=== PATIENT | male | born 1950 | race Caucasian/White ===

== ENCOUNTER 2017-02-11 00:43 | Inpatient (IN) ==
[2017-02-11] MEDS ORDERED: ONDANSETRON 4 MG/2 ML INJECTION IVP ONE (00:51)
[2017-02-11] MEDS ORDERED: HYDROMORPHONE 2 MG/ML INJECTION IVP ONE (00:51)
[2017-02-11] MEDS ORDERED: ONDANSETRON 4 MG/2 ML INJECTION IVP PRN (00:51)
[2017-02-11] MEDS ORDERED: ERTAPENEM 1 G in NS 100 ML IV ONE (00:51)
--- NOTE | 2017-02-11 01:00 | Emergency Department Report ---
Abdominal Pain HPI - General Stated Complaint: Appendicitis Time Seen by Provider: 02/11/17 00:45 Source: patient, EMS Limitations: no limitations - History of Present Illness HPI narrative: Patient began having abdominal pain yesterday morning, this extended into the right lower quadrant and became worse throughout the day. Patient finally presented to [facility] in [facility] where he was found to have what appeared to be acute terminal appendicitis. Patient is transferred to this ER for further stabilization, and for admission to Dr. Iain Hadley. Patient was found to have an elevated white blood cell count of 21,000, with no significant left shift positive H pylori rapid antigen but a normal UA. Patient also had a normal amylase and lipase, and [place] a metabolic panel was likewise normal. CT shows a 0.7 cm calcification in the mid appendix compatible with appendicolith, moderate fluid dilation of the distal appendix measuring 1.6 cm with mild to moderate adjacent fat stranding surrounding the appendix. Patient did not receive any IV fluids, and was only given Toradol for pain at the outlying facility. Patient initially stated that he would wait until he had surgery for his pain medication, but when the patient heard that he would be admitted overnight and have surgery in the morning, he readily accepted IV pain medication. Review of Systems All systems: reviewed and negative except as stated PFSH Hypertension, gallstones Surgical History: Cholecystectomy. Knee surgery 2 Physical Exam - Limitations Limitations: no limitations - General General appearance: alert - Normal Exams: Head:: Normocephalic without trauma Eyes:: Pupils are PERRLA w/ EOMI, No scleral icterus, irritation, or foreign bodies noted ENMT:: No facial trauma, nasal exudates, pharyngeal erythema, or exudates are noted Neck:: Full range of motion, without adenopathy, JVD, bruits or thyromegaly Chest/Respirations:: Clear all daugherty, with good airflow, and symmetry bilaterally Cardiovascular:: Regular rate and rhythm, without murmur or gallop, Pulses 2+ all extremities, capillary refill, <2 seconds all extremities Lymphatic:: No lymphadenopathy, or lymphedema noted Musculoskeletal:: No tenderness, or deformity noted, good range of motion, all extremities Integumentary:: No rashes, hives, or bruising noted, hair and nails, without abnormality Neurological:: Patient is alert, and oriented, cranial nerves, motor/sensory/ cerebellar, exams w/o gross deficits, to observation Psychiatric:: Patient exhibits, appropriate attention, emotion and affect - Abdominal Exam Abdominal exam: Present: soft, tenderness (moderate right lower quadrant tenderness), rebound, tenderness at McBurney's Point. Absent: distention, guarding, trauma, incision, psoas sign, obturator sign, Bautista's sign, Rovsing' s sign, mass, bruit, pulsatile mass, hernia Abdominal Pain - [place] Narrative Medical decision making narrative: Patient appears to have acute appendicitis, but is stable. He is given Dilaudid 0.5 mg, Zofran 4 mg, and Invanz started in the ER. Dr. Hadley was notified, and patient will be kept nothing by mouth for probable appendicitis first thing in the morning Disposition Clinical Impression: Acute appendicitis Qualifiers: Acute appendicitis type: with localized peritonitis Qualified Code(s): K35.3 - Acute appendicitis with localized peritonitis Disposition: 02 To [facility] Condition: Improved - Seen By: physician
[2017-02-11] MEDS: NS 1,000 ML IV SCH ×3 (01:04→21:40)
[2017-02-11] MEDS ORDERED: SALINE FLUSH 10ml SYRINGE IVF PRN (01:52)
[2017-02-11 02:20] VITALS: BMI 38.8
[2017-02-11] MEDS: HYDROMORPHONE 2 MG/ML INJECTION IVP PRN ×2 (04:57→08:24)
--- NOTE | 2017-02-11 07:57 | General Surg History&Physical ---
- History of Present Illness Chief complaint: RLQ abd pain HPI: Per Dr. Hadley [facility] Patient Stated Medical History Hypertension Yes Obesity Surgical History: Cholecystectomy. Knee surgery 2 Family History: father age 66 of [place] mother age 77 of pneumonia - Social History Smoking status: Former smoker (quit in 1982, prior a pack a day) Alcohol intake frequency: former alcohol drinker Medications Home Medications Medication Instructions Recorded Confirmed Type Atenolol [Tenormin] 1 tab PO DAILY 02/11/17 02/11/17 History Allergies Allergy/AdvReac Type Severity Reaction Status Date / Time hydrocodone Allergy Unknown Verified 02/11/17 01:35 Review of Systems 10-point ROS: negative except for HPI and the following: - Musculoskeletal Musculoskeletal: Present: joint pain - Vital Signs Last Vital Signs Temp 99.1 F 02/11/17 02:09 Pulse 71 02/11/17 02:09 Resp 20 02/11/17 02:09 BP 128/82 02/11/17 02:09 Pulse Ox 99 02/11/17 02:09 Sepsis Assessment - Evaluation Sepsis screening result: No Definite Risk Hospital Course Summary Disclaimer: The visit summary below is not to be considered part of the above Progress Note.
[2017-02-11] MEDS ORDERED: BUPIVACAINE 0.25%/EPI 1:200,000 30ml SDV ONE (08:25)
[2017-02-11] MEDS ORDERED: MIDAZOLAM 2mg/2ml INJECTION IVP ONE (08:42)
[2017-02-11] MEDS ORDERED: Levalbuterol 0.63mg/3ml NEB AEROSOL STA (08:43)
[2017-02-11] MEDS ORDERED: LR 1,000 ML IV SCH (08:45)
--- NOTE | 2017-02-11 08:48 | Anesthesia Preoperative Report ---
Anesthesia Preoperative Record - Date and Time Date: 02/11/17 Preoperative Diagnosis: Acute Appendicitis Proposed Procedure: Lap Appy NPO Since Date: 02/11/17 NPO Since Time: 00:00 Allergies/Adverse Reactions: Allergies Allergy/AdvReac Type Severity Reaction Status Date / Time hydrocodone Allergy Unknown Verified 02/11/17 01:35 - Vital Signs Vital Signs: Temperature 101.1 F H 02/11/17 08:36 Pulse Rate 104 H 02/11/17 08:41 Respiratory Rate 20 02/11/17 08:36 Blood Pressure 113/66 02/11/17 08:36 Pulse Oximetry 92 02/11/17 08:22 Height and Weight: Height 5 ft 8 in Weight 113.9 kg Body Mass Index 38.8 - Medications Inpatient Medications: Current Medications Hydromorphone HCl (Dilaudid) 0.5 mg IVP Q3H PRN PRN Reason: Pain Last Admin: 02/11/17 08:24 Dose: 0.5 mg Sodium Chloride (Normal Saline) 1,000 mls @ 100 mls/hr IV .Q10H SHAE Last Infusion: 02/11/17 08:30 Dose: 0 mls/hr Lactated Ringer's (Lactated Ringers) 1,000 mls @ 100 mls/hr IV .Q10H SHAE Levalbuterol HCl (Xopenex 0.63mg/3ml) 0.63 mg AEROSOL RTTID STA Stop: 02/11/17 08:44 Midazolam HCl (Versed) 2 mg IVP PREOP ONE Stop: 02/11/17 08:43 Ondansetron HCl (Zofran) 4 mg IVP Q6H PRN PRN Reason: Nausea &/or vomiting Sodium Chloride (Iv Flush) 10 - 80 ml IVF PRN PRN PRN Reason: [place] Home Medications: Home Medications Medication Instructions Recorded Confirmed Type Atenolol [Tenormin] 1 tab PO DAILY 02/11/17 02/11/17 History Is Patient on Beta Michael?: Yes Beta Michael Last Dose Date/Time: 02/10/17 1030 - Medical History Respiratory: Reports: Other (Former Smoker) Cardiovascular: Reports: Hypertension (controlled with meds.) Gastrointestional: Reports: Morbid Obesity Neuro/Musculoskeletal: Denies: HX.MS.OSAR, Back Problems, Cerebrovascular Accident, Depression, Headaches, Loss of Consciousness, Muscle Weakness, Neuromuscular Disorder, Paralysis, Paresthesia, Syncope, Seizures, Other Renal/Endocrine: DENIES: Diabetes Mellitus Type 1, Diabetes Mellitus Type 2, Renal Failure, Dialysis, Thyroid Disease, Weight Loss, Weight Gain, Other Other History: DENIES: Anesthesia Reactions, Now, Blood Transfusions, Chemotherapy , Cancer, Hemophilia, Malignant Hyperthermia, Sickle Cell Disease, Other - Surgical History GI Surgery/Treatments: Reports: Cholecystectomy Musculoskeletal Surgery/Tx: Reports: Knee Arthroscopy (L ACL RECONSTRUCTION, R MENISCUS REPAIR) Anesthesia Reactions: None Hx Family Anesthesia Reaction: No History of Motion Sickness: No - Social History Smoking Status: Former smoker (quit in 1982, prior a pack a day) packs per day: 1 Pack-years: 20 (Quit 30+ yrs ago) Substance Use Type: does not use Alcohol Intake Frequency: former alcohol drinker - Pertinent Findings EKG Rhythm: Normal Sinus Rhythm, First Degree AV-Block - Physical Exam Respiratory Exam: Present: wheezing (Right upper), bilateral breath sounds equal Cardiovascular Exam: Present: regular rate and rhythm, no murmur - Airway Assessment Mallampati Score: II TMD: 3 Fingerbreadths Neck Extension: fair Teeth: upper dentures Overall Assessment: no airway concerns - ASA ASA Score: 2 - Plan Anesthesia: General Inhalation Gases - Discussion Discussion: Discussed risks/options/alternatives of anesthesia and questions answered. Patient consents. Nursing pain assessment noted. Present for Discussion: other (none) Attestation Statement: Prior to the delivery of any anesthetic medication, I examined the patient, developed the plan, obtained the patient's consent and discussed the risk and benefits of the procedure with the patient/guardian. - Additional Information Seen by Anesthesia: Yes
[2017-02-11] MEDS ORDERED: SUCCINYLCHOLINE 20mg/mL 10mL INJECTION ONE (08:59)
[2017-02-11] MEDS ORDERED: ROCURONIUM 50 MG/5 ML INJECTION IVP ONE (08:59)
[2017-02-11] MEDS ORDERED: LIDOCAINE 2% (100mg/5mL) PF 5ml vl ONE (08:59)
[2017-02-11] MEDS ORDERED: PROPOFOL 20 ML ONE (08:59)
[2017-02-11] MEDS ORDERED: KETAMINE 500 MG/10 ML INJECTION ONE (09:00)
[2017-02-11] MEDS ORDERED: FentaNYL 100 MCG/2 ML INJECTION ONE (09:01)
[2017-02-11] MEDS ORDERED: LIDOCAINE 1% (10mg/ml) 2mL INJ PF SDV ID ONE (09:18)
[2017-02-11] MEDS ORDERED: BUPIVACAINE 0.25%/EPI 1:200,000 30ml SDV ID ONE (09:33)
[2017-02-11] MEDS ORDERED: NEOSTIGMINE 10 MG/10 ML INJECTION ONE (09:57)
[2017-02-11] MEDS ORDERED: ONDANSETRON 4 MG/2 ML INJECTION ONE (09:57)
[2017-02-11] MEDS ORDERED: DEXAMETHASONE 4 MG/ML INJECTION ONE (09:57)
[2017-02-11] MEDS ORDERED: GLYCOPYRROLATE 0.4 MG/2 ML INJECTION ONE (09:57)
[2017-02-11] MEDS ORDERED: PHENYLEPHRINE INJ 10 MG/ML VIAL IV ONE (10:08)
--- NOTE | 2017-02-11 10:12 | General Surgery Procedure Note ---
Date of Procedure: 02/11/17 Surgeon: Leonie Radiographer Angiogram: Renato Seay APRN Postoperative Diagnosis: acute ruptured appendicitis with generalized peritonitis, umbilical hernia Procedure: laparoscoic appendectomy, repair of umbilical hernia Estimated Blood Loss: See Anesthesia Record.
--- NOTE | 2017-02-11 10:15 | History and Physical ---
FINDINGS Mr. Ott is a 66-year-old gentleman I was asked to see earlier this morning through the emergency room as the result of his history and physical findings of abdominal pain in conjunction with an abnormal CT scan. Upon questioning the patient, he informs me that yesterday morning he began to notice pain within his abdomen. As the day progressed the pain became more localized to his right lower quadrant. Pain began to become quite severe in nature. Pain was made worse with any type of ambulation. Pain is made somewhat better by lying down. Pain is constant in nature. He has had some nausea in association with the pain but no vomiting. He denies any change in his bowel habits. He denies any radiating features of this right lower quadrant abdominal pain. PAST MEDICAL HISTORY Performed by my nurse practitioner, Renato Seay. PAST SURGICAL HISTORY Performed by my nurse practitioner, Renato Seay. MEDICATIONS Performed by my nurse practitioner, Renato Seay. ALLERGIES Performed by my nurse practitioner, Reanto Seay. SOCIAL HISTORY Performed by my nurse practitioner, Renato Seay. FAMILY HISTORY Performed by my nurse practitioner, Renato Seay. REVIEW OF SYSTEMS Performed by my nurse practitioner, Renato Seay. PHYSICAL EXAMINATION Mr. Ott is a 66-year-old gentleman who did appear to be in a moderate of discomfort this morning. VITALS: Temperature 99.1, pulse 71, respirations 20, blood pressure 128/82, SaO2 99% on room air. HEENT: Normocephalic. Pupils are equal, round and reactive to light and accommodation. CHEST: Clear to auscultation bilaterally. HEART: Regular rate and rhythm. Normal S1 and S2 without gallops, murmurs or clicks. ABDOMEN: Visualization of the abdomen does reveal it to be fairly protuberant in nature, i.e. the patient has a component of obesity. Palpation of the abdomen did indeed reveal pretty significant localized tenderness to his right lower quadrant. The patient had both voluntary and involuntary guarding with palpation within the right lower quadrant. He did not have a positive Rovsing' s sign, i.e. palpation within the left lower quadrant did not result in referred pain to his right lower quadrant. I did not appreciate any evidence for hepatomegaly or other abnormal masses. EXTREMITIES: Without clubbing, cyanosis, or edema. NEURO: Cranial nerves II-XII grossly intact. Patient is without focal motor or sensory deficits. LABORATORY/RADIOGRAPH EVALUATION The patient had a CT scan at [facility] last evening. Findings were compatible with that of acute appendicitis. Patient had a CBC in the outside facility. His white count was significantly elevated at 21,000. Hemoglobin was normal at 16.9. UA was obtained and found to be within normal limits. Amylase and lipase levels were obtained and found be within normal limits. CMP was obtained and also found to be essentially within normal limits. ASSESSMENT 66-year-old gentleman with acute appendicitis. PLAN Laparoscopic appendectomy. I informed the patient that his clinical history, physical findings, laboratory results and radiographic evaluation are all indicative for acute appendicitis. It was therefore my recommendation to the patient that we should proceed with surgical intervention. Specifically I discussed with the patient a laparoscopic appendectomy and its potential risk, including but not limited to, bleeding, infection, as well as potential conversion to an open procedure. The patient understood and wished to proceed with a laparoscopic appendectomy. SAW
[2017-02-11] MEDS ORDERED: KETOROLAC 15 MG/ML INJECTION IVP PRN (10:47)
[2017-02-11] MEDS ORDERED: METOCLOPRAMIDE 10mg/2ml INJECTION IVP PRN (10:47)
[2017-02-11] MEDS ORDERED: MORPHINE SULFATE 4 MG SYRINGE IVP PRN (10:47)
[2017-02-11] MEDS: ATENOLOL 50 MG TABLET PO SCH (11:45)
[2017-02-11] MEDS: Oxycodone/Acetaminophen 5/325 1 TAB PO PRN ×3 (11:45→20:30)
--- NOTE | 2017-02-11 15:10 | Operative Note ---
DATE OF PROCEDURE 02/11/2017 SURGEON Iain Hadley MD CUSTOMER SUPPORT TECHNICIAN Renato Seay APRN PREOPERATIVE DIAGNOSIS Umbilical hernia, appendicitis. POSTOPERATIVE DIAGNOSIS Umbilical hernia, ruptured appendicitis. ANESTHESIA General endotracheal. EBL AND FLUIDS Please see chart. BRIEF HISTORY/INDICATIONS Mr. Ott is a 66-year-old gentleman I was asked to see last evening through [facility] as a result of his history and physical findings of right lower quadrant abdominal pain in conjunction with a CT scan revealing evidence for appendicitis. Upon examination the patient was found be exquisitely tender upon palpation. The majority of the tenderness appeared to be located within his right lower quadrant. He was found to have marked leukocytosis upon laboratory evaluation with a white count of 20,000. CT scan was abnormal consistent with that of "terminal appendicitis." As a result of the above circumstances, it was recommend to the patient that he undergo surgical intervention. For completeness please refer to notes included in the patient's chart. FINDINGS Upon laparoscopy the patient was found to have franc purulent material within the pericecal region as well as within the pouch of Jesus. The appendix was found to be ruptured with an exposed fecalith present protruding through the tip of the appendix. Base of the appendix was uninvolved. Small bowel, colon which was visualized was otherwise within normal limits. Liver edge was smooth without nodularities. A standard laparoscopic appendectomy was completed without incident. DESCRIPTION OF PROCEDURE After informed consent was obtained, the patient was brought to the operative suite and placed on the table in supine fashion. The abdomen was then prepped and draped in sterile fashion. Formal time-out was then completed. One could see an element of prominence at the level of the umbilicus. One could see that there was indeed a moderate-sized umbilical hernia present coming forth through the base of the appendix. 0.25% Marcaine with epinephrine was injected just beneath the level of the umbilicus. A 2-3 cm curved incision was then made through the area of analgesia. The base of the umbilicus was then dissected off the underlying hernia sac. The hernia sac was then dissected free at the level of the fascia. There was a fascial defect that was on the order about a centimeter in dimension. Next, a hemostat was introduced through the fascial defect and through the underlying hernia sac into the peritoneal cavity. The hemostat was then gently spread. A U-stitch was then placed with 0 Vicryl through the fascial defect. Fascial defect was then utilized as the port site. A 12 mm Radha port was placed through the fascial defect into the peritoneal cavity. Pneumoperitoneum was established to a patient pressure of 15 mmHg utilizing carbon dioxide. Next, the patient was then placed in reverse Trendelenburg and rotated towards his left. Abdominal cavity was explored via the laparoscope. Findings were as noted above. A 5-mm port was then placed within the suprapubic region as well as an additional 12 mm port within the right upper quadrant. Each port site was preinjected with 0.25% Marcaine with epinephrine placed under direct visualization. Attention was then focused to the abnormal appendix. As stated above, the tip of the appendix had perforated. There was franc purulence within the peritoneal cavity. A small opening was then created within the mesoappendix adjacent to the base of the appendix. A linear stapler was then placed across the base of the appendix and fired utilizing a GI load. Vascular reload was then placed in the linear stapler and placed across the mesoappendix and fired. A small portion of the mesoappendix persisted. A Horizon hemoclip was placed upon the remaining portion of the mesoappendix and the mesoappendix was then divided distal to the Horizon hemoclip. The appendix was then placed in a laparoscopic retrieval bag and removed via the infraumbilical port site. Both staple lines were then inspected. There was some bleeding coming forth from the staple line upon the mesoappendix. A few additional Horizon hemoclips were then placed upon this location, resulting in complete hemostasis. Both staple lines were intact and hemostatic in nature. Irrigation was performed and all irrigant was then suctioned until clear both within the pouch of Jesus as well as along the right pericolic gutter. Next a 19-Palauan drain was then placed through the 12 mm port within the right upper quadrant. The drain was then placed within the right pericolic gutter and the tip of the drain was placed within the pouch of Jesus within the pelvis. Trocar was removed. The remaining 5-mm trocar was then removed in the suprapubic region. Pneumoperitoneum was released. Remaining camera port was then removed. Previously placed U-stitch was then secured resulting in imbrication of the fascial defect to the umbilicus. Base of the umbilicus was imbricated to underlying fascia. This was performed by obtaining a small subcuticular purchase at the base umbilicus followed by a small purchase of the fascia just beneath the fascial closure. Deep subcutaneous tissues were then reapproximated in a running fashion with 3-0 Vicryl. All skin incisions were then closed with franklyn. Drain was secured to the right lateral abdominal wall with 2-0 Prolene. The patient was awakened from his anesthetic and sent back to the recovery room once deemed in stable condition. Additionally, it should be noted that Renato Seay APRN, was present throughout the entire case and played a pivotal role in providing assistance and exposure during the course of the procedure. SAW
--- NOTE | 2017-02-11 19:16 | Anesthesia Postoperative Note ---
- Date and Time Date: 02/11/17 Time: 16:30 - Status Patient Participated in Evaluation: Patient Participated in Person Vital Signs: Temperature 98.6 F 02/11/17 16:55 Pulse Rate 78 02/11/17 16:45 Respiratory Rate 22 02/11/17 16:45 Blood Pressure 112/65 02/11/17 16:30 Pulse Oximetry 95 02/11/17 16:45 Respiratory Function: Airway Patent Cardiovascular Function: Regular Pulse EKG Rhythm: Normal Sinus Rhythm Mental Status: Alert and Oriented Hydration: Taking PO Fluids Complications During Recover: None Apparent - Follow-Up Instructions Instructions: Per Surgeon
[2017-02-11] MEDS: ERTAPENEM 1 G in NS 100 ML IV SCH (20:30)
[2017-02-12] MEDS: Oxycodone/Acetaminophen 5/325 1 TAB PO PRN ×3 (01:08→16:45)
[2017-02-12] MEDS: ATENOLOL 50 MG TABLET PO SCH (08:11)
[2017-02-12] MEDS: PANTOPRAZOLE 40 MG INJECTION IVP SCH (08:11)
[2017-02-12] MEDS: NS 1,000 ML IV SCH ×2 (08:43→20:27)
[2017-02-12] MEDS: ERTAPENEM 1 G in NS 100 ML IV SCH (20:14)
--- NOTE | 2017-02-12 20:14 | Progress Note ---
DATE OF SERVICE 02/12/2017 FINDINGS Mr. Ott was seen earlier today on rounds. He was in good spirits. He states his abdominal pain has markedly improved. He states that he was "not happy with his nurse." Exam VITAL SIGNS: Afebrile, normotensive. Please refer to EMR. CHEST: Clear to auscultation bilaterally. HEART: Regular rate and rhythm. Normal S1 and S2 without gallops, murmurs or clicks. ABDOMEN: Abdomen soft. Minimal incisional tenderness present. There was some minimal bleeding coming forth from his periumbilical incision. LABORATORY/RADIOGRAPHIC EVALUATION The patient had a CBC today and his white count remains elevated at 21,000. Hemoglobin is stable at 13.6. BMP was obtained and found to be without marked abnormalities. ASSESSMENT 66-year-old gentleman status post laparoscopic appendectomy secondary to ruptured appendicitis. Patient progressing well. PLAN The patient was requesting to be sent home this evening for he was "unhappy with his nurse." I informed the patient that given the fact he had a ruptured appendicitis with franc purulent material within his peritoneal cavity, I would recommend that he stay in our facility over the next 24-48 hours and receive additional intravenous antibiotics. Will continue to follow the patient closely. SAW
[2017-02-13] MEDS: Oxycodone/Acetaminophen 5/325 1 TAB PO PRN ×3 (06:11→19:29)
[2017-02-13] MEDS: ATENOLOL 50 MG TABLET PO SCH (08:02)
[2017-02-13] MEDS: ENOXAPARIN 40 MG/0.4 ML INJECTION SQ SCH (08:02)
[2017-02-13] MEDS: PANTOPRAZOLE 40 MG INJECTION IVP SCH (08:03)
[2017-02-13] MEDS: POLYETHYL GLYCOL 3350 17gm PACKET PO SCH (11:50)
--- NOTE | 2017-02-13 12:07 | General Surgery Progress Note ---
Subjective Patient reports: feels better (would like to go home) - Vital Signs Last Vital Signs Temp 97.4 F 02/13/17 11:49 Pulse 68 02/13/17 11:49 Resp 18 02/13/17 11:49 BP 145/86 H 02/13/17 11:49 Pulse Ox 99 02/13/17 11:49 - Laboratory Result Diagrams: 02/13/17 04:21 02/13/17 04:21 Assessment and Plan (1) Acute appendicitis Current Visit: Yes Status: Acute Qualifiers: Acute appendicitis type: with localized peritonitis Qualified Code(s): K35.3 - Acute appendicitis with localized peritonitis Plan: Dulcolax tabs today. Will plan on discharge with 7 days Augmentin. F/U appointment with Leonie Feb 18 at 8:45. anticipate DC to home tonight or tomorrow Hospital Course Summary Disclaimer: The visit summary below is not to be considered part of the above Progress Note. Hospital Course: 02/11/2017 BRIEF HISTORY/INDICATIONS Mr. Ott is a 66-year-old gentleman I was asked to see last evening through [facility] as a result of his history and physical findings of right lower quadrant abdominal pain in conjunction with a CT scan revealing evidence for appendicitis. Upon examination the patient was found be exquisitely tender upon palpation. The majority of the tenderness appeared to be located within his right lower quadrant. He was found to have marked leukocytosis upon laboratory evaluation with a white count of 20,000. CT scan was abnormal consistent with that of "terminal appendicitis." As a result of the above circumstances, it was recommend to the patient that he undergo surgical intervention. Transferred to CCU post operatively, due to extent of peritonitis at the time of surgery. 02/12/2017 ASSESSMENT POD #1 66-year-old gentleman status post laparoscopic appendectomy secondary to ruptured appendicitis. Patient progressing well. PLAN The patient was requesting to be sent home this evening for he was "unhappy with his nurse." I informed the patient that given the fact he had a ruptured appendicitis with franc purulent material within his peritoneal cavity, I would recommend that he stay in our facility over the next 24-48 hours and receive additional intravenous antibiotics. Will continue to follow the patient closely. 02/13/17 12:06 Dulcolax tabs today. Will plan on discharge with 7 days Augmentin. F/U appointment with Leonie Feb 18 at 8:45. anticipate DC to home tonight or tomorrow 02/13/17 12:06 02/13/17 12:07 Sepsis Assessment - Evaluation Sepsis screening result: No Definite Risk
[2017-02-13] MEDS ORDERED: Bisacodyl EC TAB 5 MG TABLET PO ONE (12:09)
--- NOTE | 2017-02-13 12:14 | Discharge Instructions ---
Discharge Plan - Med Rec/Dispo Referrals/Follow Up: TEZ HERNANDEZ PA [Family Provider] - Iain Hadley MD [Physician] - 02/18/17 8:45 am Additional Instructions: Keep track of SHARMILA drainage and bring record to appointment on Feb 18. Prescriptions: New Oxycodone/APAP 5/325 [Percocet 5/325] 1 - 2 tab PO Q5H PRN #10 tab PRN Reason: Pain Continue Atenolol [Tenormin] 1 tab PO DAILY Discharge Instructions/Outpatient Orders: Final Provider Discharge Instructions Location: Determined By Patient - Disposition 01 Discharged Home, Self-Care
--- NOTE | 2017-02-13 12:16 | Discharge Instructions ---
Discharge Plan - Med Rec/Dispo Referrals/Follow Up: Iain Hadley MD [Physician] - 02/18/17 8:45 am TEZ HERNANDEZ PA [Family Provider] - Additional Instructions: Keep track of SHARMILA drainage and bring record to appointment on Feb 18. Prescriptions: New Oxycodone/APAP 5/325 [Percocet 5/325] 1 - 2 tab PO Q5H PRN #10 tab PRN Reason: Pain Amoxicillin/Potassium Clav [Augmentin 875-125 Tablet] 1 each PO BID #14 tab Continue Atenolol [Tenormin] 1 tab PO DAILY Discharge Instructions/Outpatient Orders: Final Provider Discharge Instructions Location: Determined By Patient - Disposition 01 Discharged Home, Self-Care
[2017-02-13] MEDS: NS 1,000 ML IV SCH ×2 (14:28→15:05)
--- NOTE | 2017-02-13 17:20 | Progress Note ---
DATE OF SERVICE 02/13/2017 FINDINGS Adan today was in good spirits. He apologized about his "behavior with the nurse yesterday." He states he did have a bowel movement today. He states that he continues to experience less discomfort. EXAM VITAL SIGNS: Afebrile, normotensive. ABDOMEN: Soft. Minimal incisional tenderness. Incisions are clean, dry and intact. ASSESSMENT 66-year-old gentleman status post laparoscopic appendectomy secondary to ruptured appendicitis. PLAN Will continue with current care at this time. Will continue with broad- spectrum antibiotics. Tomorrow after he receives an additional dose of Invanz will plan discharging the patient to home if he continues on his current course. SHARMILA drain remains serosanguineous. SAW
[2017-02-13] MEDS: ERTAPENEM 1 G in NS 100 ML IV SCH (21:54)
[2017-02-14] MEDS: Oxycodone/Acetaminophen 5/325 1 TAB PO PRN (04:46)
[2017-02-14 07:37] VITALS: RESP 18; O2SAT 96
[2017-02-14] MEDS: ENOXAPARIN 40 MG/0.4 ML INJECTION SQ SCH (09:29)
[2017-02-14] MEDS: PANTOPRAZOLE 40 MG INJECTION IVP SCH (09:30)
[2017-02-14] MEDS: POLYETHYL GLYCOL 3350 17gm PACKET PO SCH (09:31)
[2017-02-14] MEDS: ATENOLOL 50 MG TABLET PO SCH (09:33)
[2017-02-14 11:33] VITALS: BP 166/98; PULSE 76; TEMP 96.7
--- NOTE | 2017-02-14 11:48 | Progress Note ---
DATE OF SERVICE 02/14/2017 FINDINGS Patient without complaints today. He is tolerating a regular diet. Bowel activity has returned to normal. EXAM VITAL SIGNS: Afebrile, normotensive. ABDOMEN: Soft, nontender. Incision clean, dry, intact. SHARMILA drainage is serosanguineous. ASSESSMENT Status post laparoscopic appendectomy secondary to ruptured appendicitis. Patient doing well. PLAN Discharge to home. Please refer to discharge instructions for detail if needed. SAW
--- NOTE | 2017-02-17 09:37 | Discharge Summary ---
Discharge Information Date of admission: 02/11/17 20:28 Attending Physician: Iain Hadley MD Primary care physician: TEZ HERNANDEZ - Procedures Procedures: DATE OF PROCEDURE 02/11/2017 SURGEON Iain Hadley MD LOOM CHECKER Renato Seay APRN PREOPERATIVE DIAGNOSIS Umbilical hernia, appendicitis. POSTOPERATIVE DIAGNOSIS Umbilical hernia, ruptured appendicitis. PROCEDURE Laparoscopic appendectomy and repair umbilical hernia - Laboratory Labs: Laboratory Tests 02/12/17 02/13/17 02/14/17 04:27 04:21 04:58 WBC 21.5 H 13.2 H 10.5 02/14/17 04:58 02/14/17 04:58 - History of Present Illness Chief complaint: RLQ abd pain HPI: BRIEF HISTORY/INDICATIONS Mr. Ott is a 66-year-old gentleman I was asked to see last evening through [facility] as a result of his history and physical findings of right lower quadrant abdominal pain in conjunction with a CT scan revealing evidence for appendicitis. Upon examination the patient was found be exquisitely tender upon palpation. The majority of the tenderness appeared to be located within his right lower quadrant. He was found to have marked leukocytosis upon laboratory evaluation with a white count of 20,000. CT scan was abnormal consistent with that of "terminal appendicitis." As a result of the above circumstances, it was recommend to the patient that he undergo surgical intervention. Hospital Course This is a general summary of the patient's hospital course. For more details refer to the complete medical record. Hospital course: 02/11/2017 BRIEF HISTORY/INDICATIONS Mr. Ott is a 66-year-old gentleman I was asked to see last evening through [facility] as a result of his history and physical findings of right lower quadrant abdominal pain in conjunction with a CT scan revealing evidence for appendicitis. Upon examination the patient was found be exquisitely tender upon palpation. The majority of the tenderness appeared to be located within his right lower quadrant. He was found to have marked leukocytosis upon laboratory evaluation with a white count of 20,000. CT scan was abnormal consistent with that of "terminal appendicitis." As a result of the above circumstances, it was recommend to the patient that he undergo surgical intervention. Transferred to CCU post operatively, due to extent of peritonitis at the time of surgery. 02/12/2017 ASSESSMENT POD #1 66-year-old gentleman status post laparoscopic appendectomy secondary to ruptured appendicitis. Patient progressing well. PLAN The patient was requesting to be sent home this evening for he was "unhappy with his nurse." I informed the patient that given the fact he had a ruptured appendicitis with franc purulent material within his peritoneal cavity, I would recommend that he stay in our facility over the next 24-48 hours and receive additional intravenous antibiotics. Will continue to follow the patient closely. 02/13/17 12:06 Dulcolax tabs today. Will plan on discharge with 7 days Augmentin. F/U appointment with Leonie Feb 18 at 8:45. anticipate DC to home tonight or tomorrow 02/13/17 12:06 02/14/2017 Doing well. DC to home on Augmentin with follow up appointment next week. DVT Prophylaxis: Lovenox GI Prophylaxis: Protonix Discharge Plan - Med Rec/Dispo Referrals/Follow Up: Iain Hadley MD [Physician] - 02/18/17 8:45 am TEZ HERNANDEZ PA [Family Provider] - Additional Instructions: Keep track of SHARMILA drainage and bring record to appointment on Feb 18. Prescriptions: New Oxycodone/APAP 5/325 [Percocet 5/325] 1 - 2 tab PO Q5H PRN #10 tab PRN Reason: Pain Amoxicillin/Potassium Clav [Augmentin 875-125 Tablet] 1 each PO BID #14 tab Continue Atenolol [Tenormin] 1 tab PO DAILY Discharge Instructions/Outpatient Orders: Final Provider Discharge Instructions Location: Determined By Patient - Disposition 01 Discharged Home, Self-Care
== END 2017-02-14 13:45 | disposition home or self-care (01) | DRG 340 ==
LOC: ED 00:43 → SRG 00:43 → CCU 10:44 → SRG 02-12 09:26
PROVIDERS: ADMIT Surgery; ATTEND Surgery